=== PATIENT | female | born 1985 | race Caucasian/White ===

== ENCOUNTER 2017-02-27 09:50 | Outpatient (CLI) | payer BC ==
[~2017-02-27] VITALS: Ht 167.6 cm; Wt 114.0 kg
[2017-02-27 10:29] VITALS: BP 147/89
[2017-02-27] MEDS ORDERED: PRENATAL TABLE1 EAC3 PO (10:35)
[2017-02-27] MEDS ORDERED: CALCIUM + D3 E1 EACH PO (10:36)
[2017-02-27] MEDS ORDERED: IRON325 M1 PO (10:36)
[2017-02-27] MEDS ORDERED: ASPIR 8181 M1 PO (10:36)
[2017-02-27] MEDS ORDERED: COLACE100 MG PO (10:37)
[2017-02-27] MEDS ORDERED: FABB TABLET1 EACH PO (10:37)
[2017-02-27 11:10] VITALS: BP 137/81
[2017-02-27 11:16] LABS: EOSINOPHIL (%) 0.9 % (0-5); EOSINOPHIL COUNT 0.1 K/uL (0-0.3); HEMATOCRIT 31.5 % (36.0-46.0); IMMATURE GRANULOCYTE (%) 0.3 % (0.0-0.7); INSTRUMENT ABS NEUTROPHIL CT 5.7 K/uL; LYMPHOCYTE COUNT 1.8 K/uL (1.0-2.8); MCH 30.6 PG (29.0-34.0); MCHC 36.2 G/DL (30.0-36.0); MCV 84.5 FL (83-99); MEAN PLAT.VOLUME 11.1 uM^3 (9.5-12.4); MONOCYTE (%) 4.8 % (3-12); MONOCYTE COUNT 0.4 K/uL (0-0.8); NEUTROPHIL (%) 71.3 % (45-76); NEUTROPHIL COUNT 5.7 K/uL (1.8-6.4); PLATELET COUNT 118 K/uL (156-360); RBC DIS.WIDTH-CV 13.6 % (11.8-14.6); RBC DIS.WIDTH-SD 42.2 % (39-53); RED BLOOD COUNT 3.73 M/uL (3.80-5.20); WHITE BLOOD COUNT 7.9 K/uL (4.1-10.2)
[2017-02-27 11:41] LABS: CHLORIDE 105 MEQ/L (99-109); POTASSIUM 3.7 MEQ/L (3.7-5.4); SODIUM 137 MEQ/L (136-147)
[2017-02-27 12:00] LABS: ALKALINE PHOSPHATASE 87 IU/L (3-129); ANION GAP 11 MEQ/L (2-14); GFR ESTIMATE (CALCULATED) > 59 mL/min/; GLUCOSE 72 mg/dL (70-99); SAMPLE HEMOLYSIS CHECK 0; SAMPLE ICTERIC CHECK 0; SAMPLE LIPEMIA CHECK 0; TOTAL BILIRUBIN 0.5 MG/DL (0.0-1.0); UREA NITROGEN (BUN) 9 mg/dL (9-23)
[2017-02-27 12:19] VITALS: BP 154/87
[2017-02-27 12:36] LABS: UR CREATININE CONCENTRATION 72.3 MG/DL
[2017-02-27 12:52] VITALS: BP 140/83
== END 2017-02-27 13:32 | disposition home or self-care (01) ==
LOC: LDRP-OP 09:50 → 2WEST 09:52
PROVIDERS: Midwife
DX: O13.9 Gestational [pregnancy-induced] hypertension without significant proteinuria, unspecified trimester (principal); Z3A.00 Weeks of gestation of pregnancy not specified
CPT/HCPCS: 59025; 80053; 82570; 84156; 85025; G0378

== ENCOUNTER 2017-03-01 18:19 | Outpatient (CLI) | payer BC ==
[2017-03-01] VITALS (13 sets, daily range): BP systolic 128–165; BP diastolic 78–89
[~2017-03-01] VITALS: Ht 167.6 cm; Wt 113.8 kg
[~2017-03-01 18:19] MED LIST: ASPIR 8181 M1 PO; CALCIUM + D3 E1 EACH PO; COLACE100 MG PO; FABB TABLET1 EACH PO; IRON325 M1 PO; PRENATAL TABLE1 EAC3 PO
[2017-03-01 19:48] LABS: EOSINOPHIL (%) 1.4 % (0-5); EOSINOPHIL COUNT 0.1 K/uL (0-0.3); HEMATOCRIT 31.9 % (36.0-46.0); IMMATURE GRANULOCYTE (%) 0.4 % (0.0-0.7); INSTRUMENT ABS NEUTROPHIL CT 6.3 K/uL; LYMPHOCYTE COUNT 2.3 K/uL (1.0-2.8); MCH 30.3 PG (29.0-34.0); MCHC 36.1 G/DL (30.0-36.0); MCV 83.9 FL (83-99); MEAN PLAT.VOLUME 11.1 uM^3 (9.5-12.4); MONOCYTE (%) 4.8 % (3-12); MONOCYTE COUNT 0.4 K/uL (0-0.8); NEUTROPHIL (%) 68.4 % (45-76); NEUTROPHIL COUNT 6.3 K/uL (1.8-6.4); PLATELET COUNT 120 K/uL (156-360); RBC DIS.WIDTH-CV 13.7 % (11.8-14.6); WHITE BLOOD COUNT 9.2 K/uL (4.1-10.2)
[2017-03-01 20:18] LABS: ALKALINE PHOSPHATASE 97 IU/L (3-129); ANION GAP 11 MEQ/L (2-14); CHLORIDE 106 MEQ/L (99-109); GFR ESTIMATE (CALCULATED) > 59 mL/min/; GLUCOSE 90 mg/dL (70-99); POTASSIUM 3.4 MEQ/L (3.7-5.4); SAMPLE HEMOLYSIS CHECK 0; SAMPLE ICTERIC CHECK 0; SAMPLE LIPEMIA CHECK 0; SODIUM 139 MEQ/L (136-147); TOTAL BILIRUBIN 0.4 MG/DL (0.0-1.0); UREA NITROGEN (BUN) 9 mg/dL (9-23)
[2017-03-01 21:16] LABS: UR CREATININE CONCENTRATION 37.5 MG/DL
[2017-03-02] VITALS (12 sets, daily range): BP systolic 133–164; BP diastolic 78–95
[2017-03-02 07:06] LABS: HEMATOCRIT 34.5 % (36.0-46.0); MCH 29.1 PG (29.0-34.0); MCHC 34.8 G/DL (30.0-36.0); MCV 83.5 FL (83-99); MEAN PLAT.VOLUME 11.2 uM^3 (9.5-12.4); PLATELET COUNT 127 K/uL (156-360); RBC DIS.WIDTH-CV 13.5 % (11.8-14.6); RBC DIS.WIDTH-SD 41.1 % (39-53); RED BLOOD COUNT 4.13 M/uL (3.80-5.20); WHITE BLOOD COUNT 9.6 K/uL (4.1-10.2)
[2017-03-02 07:26] LABS: ANION GAP 13 MEQ/L (2-14); CHLORIDE 106 MEQ/L (99-109); SAMPLE HEMOLYSIS CHECK 0; SAMPLE ICTERIC CHECK 0; SAMPLE LIPEMIA CHECK 0; SODIUM 139 MEQ/L (136-147)
[2017-03-02 07:28] LABS: TOTAL BILIRUBIN 0.5 MG/DL (0.0-1.0)
[2017-03-02 07:32] LABS: ALKALINE PHOSPHATASE 107 IU/L (3-129); GFR ESTIMATE (CALCULATED) > 59 mL/min/; GLUCOSE 96 mg/dL (70-99); UREA NITROGEN (BUN) 8 mg/dL (9-23)
== END 2017-03-02 12:05 | disposition short-term general hospital (02) ==
LOC: LDRP-OP 18:19 → 2WEST 18:20 → LDRP-OP 06-07 14:24
PROVIDERS: Obstetrics & Gynecology
DX: O14.03 Mild to moderate pre-eclampsia, third trimester (principal); Z3A.33 33 weeks gestation of pregnancy; Z87.891 Personal history of nicotine dependence
CPT/HCPCS: 59025; 80053; 82570; 84156; 85025; 85027; G0378; J0702; J7120